=== PATIENT | female | born 1985 | race Caucasian/White ===

== ENCOUNTER 2022-11-28 17:51 | Emergency (ER) | payer SELFPAY ==
--- NOTE | 2022-11-28 18:00 | PC.NURSE ---
Patient up to the triage desk to notify this RN that she no longer wants to be seen. Encouraged to stay for evaluation but declined. Encouraged to return with any new or worsening sx
== END 2022-11-28 18:00 | disposition left against medical advice (07) ==
DX: Z53.21 Procedure and treatment not carried out due to patient leaving prior to being seen by health care provider (principal)
CPT/HCPCS: 99199